=== PATIENT | female | born 1955 | race Caucasian/White ===

== ENCOUNTER 2022-07-18 14:09 | Emergency (ER) | payer MEDICARE ==
[2022-07-18 15:59] LABS: CALCIUM 9.8 mg/dL (8.5-10.3); CREATININE 0.8 mg/dL (0.4-1.0); POTASSIUM 3.8 mmol/L (3.5-5.0)
--- NOTE | 2022-07-18 16:11 | ED Physician Documentation ---
History of Present Illness - Stated complaint Stated Complaint: HIGH BP - Chief complaint Chief Complaint: Cardiac - History obtained from History obtained from: Patient - Additonal information Additional information: 59-year-old woman with longstanding hypertension maintained on hydrochlorothiazide. Last week she had a day where she was feeling quite sad and checked her blood pressure and it was high and she is been checking her blood pressure ever since and it has remained high. She called her doctor's office hoping for an appointment they referred her here. She feels fine otherwise. No chest pain, trouble breathing, pedal edema, urinary complaints.She added metoprolol 25 mg long-acting to her regimen once a day last week. Review of Systems Constitutional: denies: Fever, Chills Nose: denies: Rhinorrhea / runny nose Cardiac: denies: Chest pain / pressure, Palpitations Respiratory: denies: Dyspnea, Cough GI: denies: Abdominal Pain, Vomiting PD PAST MEDICAL HISTORY - Present Medications Home Medications: Ambulatory Orders Medication Instructions Recorded Confirmed Losartan [Cozaar] 50 mg PO DAILY #60 tablet 07/18/22 hydroCHLOROthiazide [Hydrodiuril] 25 mg PO DAILY 07/18/22 07/18/22 - Allergies Allergies/Adverse Reactions: Allergies Allergy/AdvReac Type Severity Reaction Status Date / Time morphine AdvReac Hallucinati Verified 07/18/22 14:30 ons PD ED PE NORMAL - Vitals Vital signs reviewed: Yes - General General: Alert and oriented X 3, No acute distress - HEENT HEENT: PERRL, EOMI - Neck Neck: Supple, no meningeal sign, No bony TTP - Cardiac Cardiac: RRR, No murmur - Respiratory Respiratory: No respiratory distress, Clear bilaterally - Abdomen Abdomen: Non tender - Back Back: No CVA TTP, No spinal TTP - Derm Derm: Normal color, Warm and dry - Extremities Extremities: No edema, No calf tenderness / cord - Neuro Neuro: Alert and oriented X 3, No motor deficit, No sensory deficit, Normal speech Results - Vitals Vitals: Vital Signs - 24 hr 07/18/22 14:24 Temperature 36.5 C Heart Rate 73 Respiratory 17 Rate Blood Pressure 186/97 H O2 Saturation 98 Oxygen O2 Source Room air - EKG (time done) 1622 Rate: Rate (enter#) (71) Rhythm: NSR Jud: Normal Intervals: Normal MT QRS: Normal Ischemia: Normal ST segments. No: ST elevation c/w ischemia, ST depression, T wave inversion - Labs Labs: Laboratory Tests 07/18/22 07/18/22 15:45 16:13 Sodium 140 Potassium 3.8 Chloride 101 Carbon Dioxide 28 Anion Gap 11.0 BUN 18 Creatinine 0.8 Estimated GFR (MDRD) 71 L Glucose 101 H Calcium 9.8 Urine Color YELLOW Urine Clarity CLEAR Urine pH 5.5 Ur Specific [place] 1.010 Urine Protein NEGATIVE Urine Glucose (UA) NEGATIVE Urine Ketones NEGATIVE Urine Occult Blood NEGATIVE Urine Nitrite NEGATIVE Urine Bilirubin NEGATIVE Urine Urobilinogen 0.2 (NORMAL) Ur Leukocyte Esterase NEGATIVE Ur Microscopic Review NOT INDICATED Urine Culture Comments NOT INDICATED PD Medical Decision Making - ED course ED course: 67-year-old woman with asymptomatic elevated blood pressure. No evidence of endorgan damage. She is started on lisinopril in addition to her prior regimen. Departure - Departure Disposition: Home, Self Care Clinical Impression: Uncontrolled hypertension Condition: Good Record reviewed to determine appropriate education?: Yes Instructions: Choices Low Salt, ED Hypertension Conf Out Of Control Prescriptions: Losartan [Cozaar] 50 mg PO DAILY #60 tablet Comments: Your EKG and labs were normal. No evidence of damage from the blood pressure. I am starting losartan. The starting dose is 50 mg, if after few days your systolic blood pressure, the top number, is still above 160, you can double it to 100 mg a day. Follow-up with Dr. Perez, next available appointment. Return for new or worsening symptoms. You can continue the metoprolol and hydrochlorothiazide with the new medication.
[2022-07-18 16:29] LABS: BILIRUBIN,URINE NEGATIVE (NEGATIVE); GLUCOSE, URINE (UA) NEGATIVE (NEGATIVE); KETONES,URINE (UA) NEGATIVE (NEGATIVE); LEUKOCYTE ESTERASE, URINE NEGATIVE (NEGATIVE); NITRITE,URINE NEGATIVE (NEGATIVE); OCCULT BLOOD,URINE NEGATIVE (NEGATIVE); PH,URINE 5.5 PH (5.0-7.5); PROTEIN,URINE NEGATIVE (NEGATIVE); UROBILINOGEN,URINE 0.2 (NORMAL) E.U./dL (NORMAL)
[2022-07-18 16:33] LABS: CLARITY,URINE CLEAR (CLEAR)
[2022-07-18 16:45] VITALS: BP 179/91
== END 2022-07-18 16:45 | disposition home or self-care (01) ==
LOC: ED 14:09
DX: I10 Essential (primary) hypertension (principal)
CPT/HCPCS: 36415; 80048; 81001; 81003; 87086; 93005; 99283